=== PATIENT | male | born 1940 | race Caucasian/White ===

== ENCOUNTER 2017-10-13 01:37 | Inpatient (IN) | payer MEDICARE ==
[2017-10-13] MEDS ORDERED: Acetaminophen 500 MG TAB ONE (02:05)
[2017-10-13] MEDS ORDERED: Ondansetron HCl/PF 4 MG/2 ML Vial IVP PRN (04:03)
[2017-10-13] MEDS ORDERED: Acetaminophen 325 MG TAB PO PRN (04:03)
[2017-10-13 06:33] VITALS: BMI 16.5
--- NOTE | 2017-10-13 06:35 | HP ---
CODE STATUS: Full code. PRIMARY CARE PHYSICIAN: Dr. Stu Luke TIME OF EVALUATION: 3:30 a.m. CHIEF COMPLAINT: Shortness of breath. HISTORY OF PRESENT ILLNESS: This is a 77-year-old male patient with past medical history of COPD, otherwise usually in good compensated health came to the hospital after having severe shortness of breath, fever, associated with cough, yellowish sputum production. The patient had a drop in saturation that was in the 80s, needing oxygen to bring the saturation up to 90. He reported that he had been taking care of his mother in the [facility] for the past few days and had been basically staying at the [facility] for a couple of days. he believes he caught the pneumonia at home. Symptoms were reported as severe. REVIEW OF SYSTEMS: CONSTITUTIONAL: The patient had fever, chills, generalized weakness. RESPIRATORY: Cough, sputum production, shortness of breath, reported saturations in the 80s. CARDIOVASCULAR: No chest pain or palpitations. GASTROINTESTINAL: No nausea, vomiting, diarrhea or abdominal pain. BAKED AND GRAPHITE INSPECTOR: No dizziness, headache or feeling lightheaded. GENITOURINARY: No burning with urination. EXTREMITIES: No leg edema. All other systems were reviewed and negative except for the findings mentioned above. PAST MEDICAL HISTORY: COPD. SOCIAL HISTORY: He lives with . FAMILY HISTORY: Mother with history of pneumonia. PAST SURGICAL HISTORY: Appendix. PSYCHIATRIC HISTORY: No previous psychiatric history. SOCIAL HISTORY: Drinks socially, very rarely. No drug use. No smoking history. ALLERGIES: No known drug allergies. REPORTED MEDICATIONS: Levoxyl, atorvastatin, Brovana, budesonide, Tudorza Pressair. PHYSICAL EXAMINATION: VITAL SIGNS: On presentation, blood pressure 131/80 with heart rate 94, temperature 102.7, pain 4/10, oxygen saturation 90 on room air as per ER report. Saturation had dropped to the 80s needing nasal cannula to keep saturation above 90, which is new for the patient. He does not use home oxygen. GENERAL APPEARANCE: The patient is alert, oriented, no acute distress. HEENT: Eyes; normal conjunctivae, moist oral mucosa, anicteric. NECK: No JVD. RESPIRATORY: Bilateral air entry is decreased, patient has scattered wheezing, symmetric expansion that is decreased. Patient using nasal cannula 2 liters with saturation of 90, currently 94. CARDIOVASCULAR: Normal rate, regular rhythm. No murmurs, no gallop. No edema. ABDOMEN: Soft, normal bowel sounds. MUSCULOSKELETAL: Baseline range of motion and strength. No tenderness. SKIN: Warm and intact. No pallor, no rash, no redness. NEUROLOGIC: Baseline sensory. No evidence of any new focal weakness. Baseline speech. Cranial nerves sensory intact. PSYCHIATRIC: Good mood. No anxiety, oriented, normal judgment. LABORATORY DATA: Reviewed. They are available on paper records, they were done prior to transfer. White count 28, hemoglobin 12.8, hematocrit 37.5, platelets 280. Blood cultures were obtained. Lactic acid was negative. Chemistry: Sodium level 133, potassium level 4.6, chloride 98, CO2 27, anion gap 13, glucose 119, creatinine 1.0, GFR 72, calcium 9.2. LFTs were negative. Troponin was negative. EKG was reviewed. The patient has normal sinus rhythm with possible left atrial enlargement, ventricular rate 93, WA 148, QRS 80, QT corrected 292. Chest x-ray reported patchy infiltrate in the right lower lobe. ASSESSMENT AND PLAN: The patient was placed in the hospital for the following medical problem. 1. Right lower lobe pneumonia. there is possibility for MDRO infection since pt has been on a daily baiss in his [facility] for extended hours. The patient will receive antibiotics, this is leading to hypoxic respiratory failure. Will place on oxygen. Reconcile antibiotics depending on culture results. 2. Sepsis given a white count of 28, fever, source of pneumonia, treatment as above, adjust abt's as needed. 3. Possible chronic obstructive pulmonary disease exacerbation. The patient is having some wheezing that is scattered, could be exacerbated by the underlying infection. We will put the patient on nebs, steroids and antibiotics , oxygen support. 4. Acute hypoxic respiratory failure secondary to pneumonia and possible underlying chronic obstructive pulmonary disease exacerbation. The patient has a cough. We will treat the underlying condition. 5. Hyponatremia. The patient has sodium 133, this is minimal, will monitor, will adjust treatment as needed. 6. Hyperglycemia. The patient has blood sugar 119, this is minimal, likely secondary to acute physical distress, will monitor, we will treat accordingly. 7. Deep venous thrombosis prophylaxis. 8. Hypercholesterolemia, low cholesterol diet is advised. Reconcile medications. 9. Hypothyroidism. Reconcile home medications. [facility]
[2017-10-13] MEDS: Enoxaparin Sodium 40 MG/0.4 ML SYRINGE SC SCH (07:52)
[2017-10-13] MEDS ORDERED: Prevnar 13-Val Conj/PF 0.5 ML SYRINGE IM ONE (09:00)
[2017-10-13] MEDS ORDERED: Mometasone/Formoterol 120 PUFF INHALER INH SCH (10:45)
[2017-10-13] MEDS: Ipratropium Bromide 2.5 ml Neb NEB SCH ×2 (14:30→18:50)
--- NOTE | 2017-10-13 15:11 | PDOC.EVN ---
Event Note - Event Note Event Note: pt seen and examined. feels much better Cont IV Abx,IV steroids. add Dulera. restart select home meds. Will follow. am labs
[2017-10-13] MEDS: Mometasone/Formoterol 120 PUFF INHALER INH SCH (18:51)
[2017-10-13 19:33] VITALS: TEMP 98
[2017-10-14] MEDS: Ipratropium Bromide 2.5 ml Neb NEB SCH ×2 (03:11→07:27)
[2017-10-14 05:20] LABS: Anion Gap 8 mmol/L (10-20); BUN (Urea Nitrogen) 20 mg/dL (8.4-25.7); Calc. Creatinine Clearance 63 mL/min (70-130); Calcium 8.6 mg/dL (7.8-10.44); Carbon Dioxide 29 mmol/L (23-31); Chloride 99 mmol/L (98-107); Estimated GFR-MDRD Greater than 90; Glucose 143 mg/dL (83-110); Potassium 4.2 mmol/L (3.5-5.1); Sodium 132 mmol/L (136-145)
[2017-10-14 05:52] LABS: Band 18 % (5-11); Hemoglobin 12.1 g/dL (14.0-18.0); Lymphocytes 3 % (21-51); MDiff Complete? YES; Mean Corpuscular HGB CONC 33.1 g/dL (32.0-36.0); Mean Corpuscular Volume 87.5 fL (78.0-98.0); Mean Platelet Volume 7.4 fL (7.4-10.4); Monocytes 2 % (0-10); Neutrophil 77 % (42-75); Platelet Count 301 thou/uL (130-400); RBC Distribution Width 12.5 % (11.5-14.5); Red Blood Cell (RBC) Count 4.18 mill/uL (4.70-6.10); White Blood Cell (WBC) Count 23.2 thou/uL (4.8-10.8)
[2017-10-14] MEDS ORDERED: Levothyroxine Sodium 100 MCG TAB PO SCH (06:00)
[2017-10-14] MEDS: Mometasone/Formoterol 120 PUFF INHALER INH SCH (07:30)
[2017-10-14 07:55] VITALS: BP 133/77
[2017-10-14] MEDS: Enoxaparin Sodium 40 MG/0.4 ML SYRINGE SC SCH (08:26)
[2017-10-14] MEDS ORDERED: Escitalopram Oxalate 10 mg Tablet PO SCH (09:00)
[2017-10-14] MEDS ORDERED: Atorvastatin Calcium 40 MG TAB PO SCH (09:00)
--- NOTE | 2017-10-14 20:53 | DIS ---
DATE OF ADMISSION: 10/13/2017 DATE OF DISCHARGE: 10/14/2017 CONDITION AT THE TIME OF DISCHARGE: Stable and improved. DISCHARGE DISPOSITION: 1. Acute chronic obstructive pulmonary disease exacerbation with bronchitis. 2. Acute respiratory failure with hypoxia, resolved. 3. Possible right lower lobe pneumonia. 4. Sepsis secondary to pneumonia. 5. Hyponatremia. 6. Hyperglycemia, resolved. 7. History of hypothyroidism. 8. History of hypercholesterolemia. DISCHARGE MEDICATIONS: Remain the same as admission medication. Please see admission H and P for de tails. NEW MEDICATIONS: 1. Medrol Dosepak. 2. DuoNebs q.4 hours p.r.n. 3. Levofloxacin 500 mg p.o. daily for 5 more days. PRIMARY CARE PHYSICIAN: Dr. Stu Luke. HISTORY OF PRESENTING ILLNESS: Mr. Mae is a very pleasant 77-year-old male with past medical his tory of COPD who presented to the emergency room with complaints of shortness of breath associated wi th fever, cough, yellowish sputum production. He was found to be in acute hypoxic respiratory failur e with oxygen saturation in the 80% on room air. He was given oxygen in the Emergency Room with impr ovement in the saturations. He had a WBC count of 28,000 upon presentation and chest x-ray showed po ssible patchy infiltrate in the right lower lobe. He was admitted with a presumptive diagnosis of se psis with the right lower lobe pneumonia and acute COPD exacerbation. Please see admission history a nd physical for further details. HOSPITAL COURSE: The patient was continued on IV steroids and IV antibiotics as well as nebulizers. The latter was added twice a day. He had dramatic improvement quite quickly and was on room air wit hin few hours. On the day of discharge, he is back to his baseline without any fever, chills, cough or shortness of breath or dyspnea on exertion. He is hemodynamically stable and will be discharged. Discharge plan was discussed with the patient who verbalized understanding. Medications were reconc iled. He will follow with primary care physician in 7-10 days. The patient was seen and examined prior to discharge. PHYSICAL EXAMINATION: VITAL SIGNS: Temperature 98, heart rate 84, respirations 16, saturating 95% on room air, blood press ure 133/77. GENERAL: No acute distress. CARDIAC: No wheezing, rales or rhonchi. Rhythm is regular.
[2017-10-15] MEDS ORDERED: predniSONE 20 MG TAB PO SCH (08:00)
[2017-10-26] MEDS ORDERED: Cholecalciferol (Vitamin D3) [Vitamin D3] 50,000 UNIT PO SCH (09:00)
== END 2017-10-14 12:32 | disposition home or self-care (01) | DRG 871 ==
LOC: ERS 01:37 → T4-B 03:19
PROVIDERS: ADMIT Hospitalist; ATTEND Hospitalist
DX: A41.9 Sepsis, unspecified organism (principal); J96.01 Acute respiratory failure with hypoxia; J44.0 Chronic obstructive pulmonary disease with (acute) lower respiratory infection; J44.1 Chronic obstructive pulmonary disease with (acute) exacerbation; E87.1 Hypo-osmolality and hyponatremia; R65.20 Severe sepsis without septic shock; R73.9 Hyperglycemia, unspecified; E78.00 Pure hypercholesterolemia, unspecified; E03.9 Hypothyroidism, unspecified; J20.8 Acute bronchitis due to other specified organisms; Z87.891 Personal history of nicotine dependence
CPT/HCPCS: 80048; 85025; 90471; 90670; 94640; 94760; 96365; G0009; J1650; J1956; J2920; J7644